=== PATIENT | female | born 1965 | race Caucasian/White ===

== ENCOUNTER 2017-01-02 08:55 | Day surgery (SDC) | payer OTHER ==
[~2017-01-02] VITALS: Ht 162.6 cm; Wt 77.1 kg
[~2017-01-02 08:55] MED LIST: 0.9% Sodium Chloride 1,000 ML IV PRN; FLUO20TA28 PO; LEVO75TA4 PO; Sodium Chloride LOK Flush 10 mL Syringe IV PRN; TRIA16.911 NS; fentaNYL-PF 50 mCg/mL 2 mL Inj IVPUSH PRN
[2017-01-02 09:18] VITALS: BP 156/87; PULSE 63; O2SAT 100
[2017-01-02 10:04] VITALS: BP 147/84; PULSE 79; RESP 16; O2SAT 100
[2017-01-02 10:14] VITALS: BP 129/74; PULSE 65; RESP 16; O2SAT 100
[2017-01-02 10:24] VITALS: BP 137/82; PULSE 67; RESP 16; O2SAT 100
[2017-01-02 10:34] VITALS: BP 140/84; PULSE 72; RESP 16; O2SAT 95
--- NOTE | 2017-01-02 11:13 | ENDO ---
[address] [address] ENDOSCOPY PROCEDURE PATIENT: MEDINA PATRICK : 1965 MR#: [id number] ADMIT: 01/02/2017 JOB ID: [id number] DATE: 01/02/2017 PROCEDURE: Colonoscopy. INDICATION: Screening. The patient's ASA classification is 2. Mallampati score is 2. MEDICATIONS: 1. Versed 7 mg. 2. Fentanyl 150 mcg. INSTRUMENT USED: PCF H 180 AL PREPARATION QUALITY: Was good. PROCEDURE DETAILS: After informed consent was obtained, the patient was brought into the GI suite, where she was placed on oxygen via nasal cannula and monitored with continuous pulse oximeter, telemetry and blood pressure monitoring. A time-out was performed. Then, she was placed in the left lateral decubitus position and medications were administered for sedation. Digital rectal examination was performed and was unremarkable. The colonoscope was then inserted into the rectum and advanced under direct visualization to the cecum, which was identified by the presence of the ileocecal valve and appendiceal orifice. Once the cecum was reached, colonoscope was withdrawn back to the rectum and the mucosa and lumen were examined. In the rectum, retroflexion was performed. Following retroflexion, remaining air in the rectum was suctioned, and the procedure was completed. FINDINGS: 1. In the ascending colon, there was an approximately 6 mm sessile polyp that was removed with a hot snare. 2. In the sigmoid colon, there was an 8 mm pedunculated polyp that was removed with a hot snare. IMPRESSION: 1. Ascending colon polyp. 2. Sigmoid polyp. RECOMMENDATIONS: 1. Avoid nonsteroidal anti-inflammatory drugs and anticoagulants for 72 hours. 2. Repeat colonoscopy in five years. COMPLICATIONS: None. ESTIMATED BLOOD LOSS: 0.
--- NOTE | 2017-01-07 17:47 | PATH ---
SURGICAL PATHOLOGY Attending Physician:Nabil Andre CASE STATUS: Signed Out PATIENT NAME: MEDINA PATRICK PID: [id number] : 1965 DATE COLLECTED:01/02/2017 16:10 SPECIMEN: 1: Colon, Polyp 2: Colon, Polyp CLINICAL HISTORY: 1). ASCENDING COLON POLYP X1 2). SIGMOID POLYP X1 FINAL DIAGNOSIS: 1. Ascending Colon Polyp, Polypectomy: Serrated polyp, favor sessile serrated adenoma. 2. Sigmoid Colon Polyp, Polypectomy: Tubulovillous adenoma. ICD10: D12.2 D12.5 GROSS DESCRIPTION: The specimen is received in two formalin filled containers labeled with the patient's name. 1). The specimen is labeled "ascending colon polyp" and consists of a 0.4 x 0.4 x 0.4 CM portion of tissue which is entirely submitted in cassette 1A. 2) The specimen is labeled "sigmoid polyp" and consists of 2 portions of tissue which aggregate to 0.3 x 0.3 x 0.2 CM. The specimen is entirely submitted in cassette 2A. 01/02/2017VA ICD-9 CODES: CPT CODES: 1: 43997 2: 41956 Electronically Signed Out Keon Álvarez MD, Ph.D. [facility] Pathology [facility] [address], [place] [address] Technical component performed at [facility], [facility] [address], [address]
== END 2017-01-02 23:59 | disposition home or self-care (01) ==
LOC: END 08:55
PROVIDERS: ATTEND Internal Medicine Gastroenterology
DX: Z12.11 Encounter for screening for malignant neoplasm of colon (principal); D12.2 Benign neoplasm of ascending colon; D12.5 Benign neoplasm of sigmoid colon; I10 Essential (primary) hypertension; E03.9 Hypothyroidism, unspecified
CPT/HCPCS: 45385; 99153; G0500; J2250; J3010; J7030